=== PATIENT | female | born 1985 ===

== ENCOUNTER 2020-01-07 06:00 | Day surgery (SDC) | payer OTHER | END 2020-01-07 10:05 | disposition home or self-care (01) | LOC: AMB-ENDOS 06:00 → ADM 13:30 → AMB-ENDOS 13:30 | PROVIDERS: ATTEND Surgery | DX: K29.50 Unspecified chronic gastritis without bleeding (principal); K44.9 Diaphragmatic hernia without obstruction or gangrene ==